=== PATIENT | female | born 2000 | race Caucasian/White ===

== ENCOUNTER → 2018-11-23 10:26 | Outpatient (CLI) | payer OTHER, SELFPAY ==
[2018-11-23 12:23] LABS: Absolute Lymphocyte Count 1.57 X10^3/uL (0.83-4.51); Basophil# 0.02 X10^3/uL; Basophil% 0.4 % (0-1); Eosinophil# 0.04 X10^3/uL; Eosinophils% 0.8 % (0-5); Hematocrit 40.4 % (37-47); Hemoglobin 13.7 g/dL (12.0-15.0); Lymphocyte # 1.57 X10^3/ul (4.0); Lymphocyte % 30.5 % (19-41); Mean Corp Hgb Conc 33.9 g/dL (32-36); Mean Corpuscular Hgb 31.4 pg (27.0-32.0); Mean Corpuscular Volume 92.7 fL (81-99); Mean Platelet Vol. 10.3 fl (6.2-12.0); Monocyte# 0.46 X10^3/uL; Monocyte% 8.9 % (0-10); NRBC Flagged by Analyzer 0 % (0-5); Neutrophil # 3.04 X10^3/uL (2.7-7.7); Platelet Count 334 K/mm3 (150-450); RBC Distribution Width CV 11.5 % (11.6-14.6); RBC Distribution Width SD 39.1 fl (35.1-43.9); Red Blood Count 4.36 M/mm3 (4.2-5.4); White Blood Count 5.2 K/mm3 (4.4-11.0)
[2018-11-25 09:10] LABS: EBV Acute VCA IgM < 36.0 U/mL (0.0-35.9); EBV Early Antigen IgG <9.0 U/mL (0.0-8.9); EBV Nuclear Antigen IgG < 18.0 U/mL (0.0-17.9); EBV-VCA IgG < 18.0 U/mL (0.0-17.9)
== END ==
PROVIDERS: Family Provider Family Medicine; PCP Family Medicine; Referring Provider Family Medicine; Visit Provider Nurse Practitioner Adult Health
DX: R53.83 Other fatigue (principal)
CPT/HCPCS: 36415; 85025; 86663; 86664; 86665

== ENCOUNTER → 2019-06-08 12:10 | Outpatient (CLI) | payer OTHER, SELFPAY ==
[2019-06-08 14:47] LABS: ALB/GLOB Ratio 1.2 RATIO (0.9-2.4); AST(SGOT) 21 U/L (15-37); Alanine Aminotransfer ALT/SGPT 20 U/L (12-78); Albumin, Serum 4.7 g/dL (3.4-5.0); Alkaline Phosphatase 72 U/L (50-136); Anion Gap 5 (5-15); BUN 8 mg/dL (7-18); BUN/Creat Ratio 12.5 RATIO (10-20); Calcium,Total 9.9 mg/dL (8.5-10.1); Chloride 107 mmol/L (98-107); Creatinine, Serum 0.64 mg/dL (0.55-1.20); EST Glomerular Filtration Rate 125 mL/min (>60); Est Glom Filt Rate - Afr Amer 151 mL/min (>60); Glucose 82 mg/dL (70-110); Potassium 4.2 mmol/L (3.5-5.1); Protein, Total 8.7 g/dL (6.4-8.2); Sodium Level 136 mmol/L (136-145)
[2019-06-16 18:40] LABS: Vitamin D,25 Hydroxy 19.8 ng/mL (29.95-100.01)
[2019-06-17 08:39] LABS: PTHIN 25.4 pg/mL (18.4-80.1)
== END ==
PROVIDERS: PCP Family Medicine; Referring Provider Family Medicine; Visit Provider Nurse Practitioner Adult Health
DX: R00.0 Tachycardia, unspecified (principal)
CPT/HCPCS: 36415; 80053; 82306; 83970

== ENCOUNTER → 2019-06-16 16:38 | Outpatient (CLI) | payer OTHER, SELFPAY | PROVIDERS: PCP Family Medicine; Referring Provider Family Medicine; Visit Provider Nurse Practitioner Adult Health | DX: Z00.00 Encounter for general adult medical examination without abnormal findings (principal) ==

== ENCOUNTER → 2019-09-05 09:49 | Outpatient (CLI) | payer OTHER, SELFPAY ==
[2019-08-10 13:25] VITALS: BMI 17.6
--- NOTE | 2019-09-05 09:52 | ECHOD_ITS ---
Reason For Study: MVP Procedure This was a 2D Doppler, Color Flow transthoracic echocardiogram. Exam performed in department. Left Ventricle Normal LV size. Left ventricular systolic function is normal. The estimated ejection fraction is 55 %. Normal diastology for age. No regional wall motion abnormalities noted. Right Ventricle Normal RV size. Normal systolic function. Atria Normal left atrium. Normal right atrium. Mitral Valve Mild mitral valve prolapse. Tricuspid Valve Normal tricuspid valve. Mild (1+) tricuspid valve insufficiency. Pulmonary artery systolic pressure is 25 mmHg. Aortic Valve Normal aortic valve. Trisinus/trileaflet aortic valve. Pulmonic Valve Normal pulmonic valve. Great Vessels Normal aortic root. Pericardium/Pleural No pericardial effusion. MMode/2D Measurements & Calculations LVIDd: 4.2 cm IVSd: 0.61 cm Ao root diam: 2.4 cm LVIDs: 2.9 cm LVPWd: 0.77 cm RVDd: 2.6 cm FS: 31.6 % LAV(MOD-bp): 15.2 ml LA A4 area: 7.1 cm2 LA dimension(2D): 2.1 cm LAV(MOD-bp) Indexed: 11.1 ml/m2 LAV(MOD-sp2): 17.3 ml LAV(MOD-sp4): 12.4 ml RA A4 area: 6.7 cm2 Time Measurements MV dec time: 0.17 sec Doppler Measurements & Calculations MV E max alden: 96.1 cm/sec Lat Peak E' Alden: 16.7 cm/sec Med Peak E' Alden: 13.0 cm/sec MV A max alden: 45.0 cm/sec E/E' lat: 5.8 E/E' med: 7.4 MV E/A: 2.1 Ao V2 max: 98.8 cm/sec LV V1 max: 79.2 cm/sec PA V2 max: 98.2 cm/sec Ao max P.9 mmHg LV V1 max P.5 mmHg TR max alden: 227.3 cm/sec TR max P.7 mmHg Interpretation Summary Normal LV size. Left ventricular systolic function is normal. The estimated ejection fraction is 55 %. Normal diastology for age. Mild mitral valve prolapse. Ordering Physician: Reese Lazcano Referring Physician: Mona Panda Performed By: Gisele Queen, CHERYL, RVT
== END ==
PROVIDERS: PCP Family Medicine; Referring Provider Internal Medicine Cardiovascular Disease; Visit Provider Internal Medicine Cardiovascular Disease
DX: R55 Syncope and collapse (principal); I34.1 Nonrheumatic mitral (valve) prolapse
CPT/HCPCS: 93225; 93226; 93306

== ENCOUNTER → 2019-09-19 16:14 | Outpatient (CLI) | payer OTHER, SELFPAY ==
[2019-09-19 14:33] VITALS: BMI 17.6
[2019-09-19 16:54] LABS: Calcium,Total 9.8 mg/dL (8.5-10.1)
[2019-09-19 17:03] LABS: Vitamin D,25 Hydroxy 42.2 ng/mL
[2019-09-22 10:12] LABS: Aldosterone, Serum 12.4 ng/dL (0.0-30.0)
== END ==
PROVIDERS: PCP Family Medicine; Referring Provider Internal Medicine Endocrinology, Diabetes & Metabolism; Visit Provider Internal Medicine Endocrinology, Diabetes & Metabolism
DX: R55 Syncope and collapse (principal); E83.52 Hypercalcemia; E55.9 Vitamin D deficiency, unspecified
CPT/HCPCS: 82088; 82306; 82310; 82533

== ENCOUNTER → 2019-10-13 08:25 | Outpatient (CLI) | payer OTHER, SELFPAY ==
[2019-08-10 13:25] VITALS: BMI 17.6
[2019-09-19 14:33] VITALS: BMI 17.6
[2019-10-13 08:53] LABS: Absolute Lymphocyte Count 1.07 X10^3/uL (0.83-4.51); Basophil# 0.01 X10^3/uL; Basophil% 0.3 % (0-1); Eosinophil# 0.03 X10^3/uL; Eosinophils% 0.9 % (0-5); Hemoglobin 14.1 g/dL (12.0-15.0); Lymphocyte # 1.07 X10^3/ul (4.0); Lymphocyte % 30.4 % (19-41); Mean Corp Hgb Conc 33.6 g/dL (32-36); Mean Corpuscular Hgb 30.9 pg (27.0-32.0); Mean Corpuscular Volume 92.1 fL (81-99); Mean Platelet Vol. 9.4 fl (6.2-12.0); Monocyte# 0.38 X10^3/uL; Monocyte% 10.8 % (0-10); NRBC Flagged by Analyzer 0 % (0-5); Neutrophil # 2.03 X10^3/uL (2.7-7.7); Neutrophil % 57.6 % (47-70); Platelet Count 368 K/mm3 (150-450); RBC Distribution Width CV 11.6 % (11.6-14.6); RBC Distribution Width SD 39.5 fl (35.1-43.9); Red Blood Count 4.56 M/mm3 (4.2-5.4); White Blood Count 3.5 K/mm3 (4.4-11.0)
[2019-10-13 09:08] LABS: Anion Gap 6 (5-15); BUN 7 mg/dL (7-18); BUN/Creat Ratio 12.2 RATIO (10-20); Calcium,Total 9.5 mg/dL (8.5-10.1); Chloride 109 mmol/L (98-107); Creatinine, Serum 0.58 mg/dL (0.55-1.02); EST Glomerular Filtration Rate 140 mL/min (>60); Est Glom Filt Rate - Afr Amer 169 mL/min (>60); Glucose 96 mg/dL (74-106); Potassium 4.2 mmol/L (3.5-5.1); Sodium Level 141 mmol/L (136-145)
[2019-10-13 09:26] LABS: Internal QC Validated? YES +Cl - CLEAR BKGD; Pregnancy, Serum, hCG Quali. NEGATIVE Negative
--- NOTE | 2019-10-13 12:53 | TILTTABLE_ITS ---
- Summary Pre Test Resting HR: 120 Pre Test Resting BP: 119/76 Minimum Test HR: 59 Maximum Test HR: 160 Minimum Test BP: 0/0 Maximum Test BP: 121/74 Physician Tilt Table Report - Patient's Physicians Primary Care Physician: Mona Panda Indications/Diagnosis: Recurrent syncope Procedure Comments: The patient was brought to the noninvasive lab in the postabsorptive nonsedated state. Initial EKG demonstrated normal sinus rhythm with a rate of 95 bpm and initial blood pressure was 121/88 mmHg. The patient w as then placed in the 70 degree head upright tilt position. The heart rate went up with the patient becoming tachycardic with a maximum heart rate being recorded at 130 bpm. The blood pressure remained stable with a peak of 119/76 mmHg. The patient was then placed in the recumbent position and given sublingual nitroglycerin 0.4 mg. The patient was then put back in the head upright tilt position. The patient was noted to initially become tachycardic with a rate of 136 bpm and then subsequently after approximately 4 minutes dropped to a greg of 60 bpm which appeared to be junctional rhythm. She was pale diaphoretic and lost consciousness briefly. She was placed back in the recumbent position with improvement in her heart rate but with a peak heart rate of approximately 89 bpm. The lowest heart rhythm was junctional rhythm only. No significant pauses were noted. Summary: Probable vasodepressive syncope. No pauses noted.
[2019-10-13 12:59] VITALS: BP 0/0; BP 119/76; BP 121/74
== END ==
PROVIDERS: PCP Family Medicine; Referring Provider Internal Medicine Cardiovascular Disease; Visit Provider Internal Medicine Cardiovascular Disease
DX: R55 Syncope and collapse (principal); I45.5 Other specified heart block; I49.8 Other specified cardiac arrhythmias; I45.10 Unspecified right bundle-branch block; E83.52 Hypercalcemia
CPT/HCPCS: 36415; 80048; 84703; 85025; 93660; J7040; A4216

== ENCOUNTER → 2020-02-06 20:00 | Outpatient (CLI) | payer OTHER, SELFPAY ==
[2020-01-10 13:22] VITALS: BMI 18.3
== END ==
PROVIDERS: PCP Family Medicine; Referring Provider Nurse Practitioner Family; Visit Provider Nurse Practitioner Family
DX: G47.10 Hypersomnia, unspecified (principal)
CPT/HCPCS: 95810

== ENCOUNTER → 2020-04-03 09:19 | Outpatient (CLI) | payer OTHER, SELFPAY ==
[2020-02-16 08:06] VITALS: BMI 19.4
--- NOTE | 2020-04-03 16:24 | PFTCOMP ---
COMPLETE PULMONARY FUNCTION TEST INTERPRETATION Brief HPI: Patient is a 20 year old female, currently under the care of Jordana Perez, who presents to [facility] for complete pulmonary function tests secondary to diagnosis of dyspnea. Respiratory therapist reports good effort and reproducible results. Interpretation: Forced expiration spirometry shows no large airways obstructive ventilatory defect with an FEV1 of 86% predicted. There is no significant bronchodilator response by strict ATS criteria. Spirograms are of poor quality and plateau poorly, likely underestimating FVC. The respiratory flow volume loop shows a normal pattern. Lung volumes by body plethysmography show a decreased total lung capacity at 3.81 L, 79% predicted. All other lung volumes are reduced symmetrically. Diffusion capacity by carbon monoxide is normal at 118% predicted. The airway resistance is normal. No previous pulmonary function tests were available for review. Impression: Mild restrictive ventilatory defect with preserved diffusion capacity
== END ==
PROVIDERS: PCP Family Medicine; Referring Provider Nurse Practitioner Acute Care; Visit Provider Nurse Practitioner Acute Care
DX: R06.00 Dyspnea, unspecified (principal)
CPT/HCPCS: 94060; 94726; 94729

== ENCOUNTER → 2020-04-17 12:24 | Outpatient (CLI) | payer OTHER, SELFPAY ==
[2020-04-10 08:41] VITALS: BMI 19.8
== END ==
PROVIDERS: PCP Family Medicine; Visit Provider Internal Medicine Critical Care Medicine
DX: R06.00 Dyspnea, unspecified (principal)
CPT/HCPCS: 94762

== ENCOUNTER → 2020-08-09 11:43 | Outpatient (CLI) | payer OTHER, SELFPAY ==
[2020-05-15 10:48] VITALS: BMI 16.6
--- NOTE | 2020-08-09 18:05 | STRESSREP ---
Stress Test Report Exercise stress test. 20-year-old lady with a history of dyspnea and shortness of breath. Stress protocol resting EKG demonstrates normal sinus rhythm with a rate of 82 bpm normal intervals are noted resting blood pressure is 100/70 mmHg. The patient exercised according to the regular Wally protocol for a total duration of 8 minutes. Patient completed 2 minutes into stage III of the Wally protocol the maximum heart rate attained was 196 bpm which was 98% of max impacted heart rate the maximum workload was 10.1 metabolic equivalents. Patient maintained sinus rhythm throughout the recording. At rest there were no ST or T wave changes noted to suggest ischemia and at peak exercise no ST changes were noted to suggest ischemia. The peak blood pressure was 130/62 mmHg which was a normal blood pressure response to exercise no arrhythmias were noted the test was terminated due to the target heart rate being achieved. Conclusion: Exercise stress test at a high metabolic workload with no evidence of ischemia. No dyspnea noted.
== END ==
PROVIDERS: PCP Family Medicine; Referring Provider Nurse Practitioner Family; Visit Provider Nurse Practitioner Family
DX: R06.00 Dyspnea, unspecified (principal); R06.02 Shortness of breath
CPT/HCPCS: 93017